=== PATIENT | male | born 1950 | race Caucasian/White ===

== ENCOUNTER → 2017-09-19 | Outpatient (CLI) | payer MEDICARE, BC | END | disposition home or self-care (01) | LOC: HKI 15:14 | DX: M17.12 Unilateral primary osteoarthritis, left knee (principal); Z96.651 Presence of right artificial knee joint | CPT/HCPCS: 73562; 73562-50 ==

== ENCOUNTER → 2017-11-17 | Outpatient (CLI) | payer MEDICARE, BC | END | disposition home or self-care (01) | LOC: HKI 09:24 | DX: Z01.818 Encounter for other preprocedural examination (principal) | CPT/HCPCS: G0463 ==

== ENCOUNTER 2017-11-27 09:08 | Observation (INO) | payer MEDICARE, BC ==
[2017-11-20 14:39] LABS: ADD MAN DIFF? NO
[2017-11-20 15:13] LABS: BASOPHILS % 0.4 % (0.0-2.0); EOSINOPHILS # 0.1 10^3/ul (0.0-0.5); EOSINOPHILS % 2.7 % (0.0-7.0); HEMATOCRIT 39.5 % (42.0-52.0); HEMOGLOBIN 13.5 g/dl (14.0-18.0); LYMPHOCYTES % 22.7 % (15.0-51.0); MEAN CORPUSCULAR HEMOGLOBIN 29.4 pg (29.0-33.0); MEAN CORPUSCULAR HGB CONC 34.2 g/dl (32.0-37.0); MEAN CORPUSCULAR VOLUME 86.1 fl (82.0-101.0); MEAN PLATELET VOLUME 9.6 fl (7.4-10.4); MONOCYTE # 0.4 10^3/ul (0.3-0.9); NEUTROPHILS % 65.8 % (39.0-77.0); PLATELET COUNT 200 10^3/UL (140-415); RED BLOOD COUNT 4.59 10^6/ul (4.70-6.10); RED CELL DISTRIBUTION WIDTH 13.2 % (11.5-14.5)
[2017-11-20 15:13] LABS: WHITE BLOOD COUNT 4.5 10^3/ul (4.8-10.8)
[2017-11-20 15:18] LABS: ALANINE AMINOTRANSFERASE 27 IU/L (13-69); ALBUMIN 3.9 g/dl (3.3-4.9); ALBUMIN/GLOBULIN RATIO 1.25; ALKALINE PHOSPHATASE 61 IU/L (42-121); ANION GAP 14 (8-16); ASPARTATE AMINO TRANSFERASE 26 IU/L (15-46); BILIRUBIN,INDIRECT 0.3 mg/dl (0-1.1); BILIRUBIN,TOTAL 0.3 mg/dl (0.2-1.3); BLOOD UREA NITROGEN 18 mg/dl (7-20); CALCIUM 9.5 mg/dl (8.4-10.2); CARBON DIOXIDE 24 mmol/L (21-31); CHLORIDE 109 mmol/L (97-110); CREATININE 0.91 mg/dl (0.61-1.24); GLUCOSE 107 mg/dl (70-220); SODIUM 143 mmol/L (135-144)
[2017-11-20 15:19] LABS: INR 1.04; PROTIME 13.7 Sec (11.9-14.9); PT RATIO 1.1
[2017-11-20 15:20] LABS: PARTIAL THROMBOPLASTIN TIME 29.2 Sec (25.0-35.0)
[2017-11-20 15:21] LABS: ADD UMIC YES; UR ASCORBIC ACID NEGATIVE (NEGATIVE); UR BILIRUBIN (Dip) NEGATIVE (NEGATIVE); UR BLOOD (Dip) 2+ mg/dL (NEGATIVE); UR CLARITY CLEAR (CLEAR); UR COLOR YELLOW (YELLOW); UR GLUCOSE (Dip) NEGATIVE (NEGATIVE); UR KETONES (Dip) NEGATIVE (NEGATIVE); UR LEUKOCYTE ESTERASE (Dip) NEGATIVE Leu/ul (NEGATIVE); UR NITRITE (Dip) NEGATIVE (NEGATIVE); UR RBC 3 /HPF (0-5); UR SPECIFIC GRAVITY (Dip) 1.018 (1.003-1.030); UR TOTAL PROTEIN (Dip) NEGATIVE (NEGATIVE); UR UROBILINOGEN (Dip) NEGATIVE (NEGATIVE); UR WBC 0 /HPF (0-5)
[2017-11-20 16:35] LABS: ERYTHROCYTE SEDIMENTATION RATE 2 mm/Hr (0-20)
[~2017-11-27 09:08] MED LIST: CLINDAMYCIN 600 MG/D5W (PMX) 50 ML IVPB; CLINDAMYCIN 900 MG/50 ML D5W IVPB IVPB
[2017-11-27] MEDS ORDERED: DEXAMETHASONE 4 MG/ML 1 ML INJ (11:00)
[2017-11-27] MEDS ORDERED: PROPOFOL 20 ML (11:00)
[2017-11-27] MEDS ORDERED: CEFAZOLIN 1 GM INJ (11:00)
[2017-11-27] MEDS ORDERED: ROCURONIUM 50 MG INJ (11:00)
[2017-11-27] MEDS ORDERED: GLYCOPYRROLATE 0.4 MG INJ (11:00)
[2017-11-27] MEDS ORDERED: MIDAZOLAM 1 MG/ML 2 ML INJ (11:00)
[2017-11-27] MEDS ORDERED: FENTAnyl 50 MCG/ML VIAL (11:00)
[2017-11-27] MEDS ORDERED: NEOSTIGMINE 3 MG/3 ML SYRINGE (11:00)
[2017-11-27] MEDS ORDERED: ONDANSETRON 4 MG INJ (11:00)
[2017-11-27] MEDS ORDERED: BUPIVACAINE 0.75% (MPF) 10 ML INJ (11:12)
[2017-11-27] MEDS ORDERED: BUPIVACAINE 0.75%/DEXT (SPINAL) 2 ML INJ (11:12)
[2017-11-27] MEDS: LACTATED RINGER'S 1,000 ML IV (11:16)
[2017-11-27] MEDS: LANSOPRAZOLE 30 MG CAP PO (11:16)
[2017-11-27] MEDS: ACETAMINOPHEN 1000MG/100ML IV 100 ML IVPB (11:16)
[2017-11-27] MEDS: ONDANSETRON 4 MG INJ IV ×4 (11:17→19:00)
[2017-11-27] MEDS: DEXAMETHASONE 4 MG/ML 1 ML INJ IV (11:17)
[2017-11-27] MEDS ORDERED: NA PHOSPHATE/BIPHOS 133 ML ENEMA PR (13:00)
[2017-11-27] MEDS ORDERED: NALOXONE (0.4 MG/ML) INJ IV (13:00)
[2017-11-27] MEDS ORDERED: MAGNESIUM HYDROXIDE 30ML CUP PO (13:00)
[2017-11-27] MEDS ORDERED: BISACODYL 10 MG SUPP PR (13:00)
[2017-11-27] MEDS ORDERED: TRIMETHOBENZAMIDE 100 MG/ML VIAL IM ×2 (13:00→14:00)
[2017-11-27] MEDS ORDERED: KETOROLAC 15 MG INJ IV (13:00)
[2017-11-27] MEDS ORDERED: oxyCODONE 5 MG TAB PO ×2 (13:00)
[2017-11-27] MEDS ORDERED: SENNA/DOCUSATE NA (8.6MG/50MG) TAB PO (13:00)
[2017-11-27] MEDS: TRANEXAMIC ACID 1,000 MG in D5W 100 ML AT INCISION X1 IVPB (13:27)
[2017-11-27] MEDS ORDERED: SUGAMMADEX SODIUM 200 MG/2 ML VIAL IV (13:48)
[2017-11-27] MEDS ORDERED: LABETALOL HCL 20MG INJ IV (14:00)
[2017-11-27] MEDS ORDERED: ALBUTEROL 0.083% (NEB) 2.5 MG/3 ML AMP HHN (14:00)
[2017-11-27] MEDS ORDERED: DIPHENHYDRAMINE 50 MG INJ IV (14:00)
[2017-11-27] MEDS ORDERED: HYDROmorphONE (0.2 MG/ML) 10ML SYG IV ×3 (14:00)
[2017-11-27] MEDS ORDERED: MIDAZOLAM 1 MG/ML 2 ML INJ IV (14:00)
[2017-11-27] MEDS ORDERED: OXYCODONE/ACETAMINOPHEN (5/325) TAB PO ×2 (14:00)
[2017-11-27] MEDS ORDERED: EPHEDrine SULFATE 50 MG/5 ML SYG IV (14:00)
[2017-11-27] MEDS ORDERED: hydrALAzine 20 MG INJ IV (14:00)
[2017-11-27] MEDS ORDERED: IPRATROPIUM (NEB) 0.5 MG/2.5 ML AMP HHN (14:00)
[2017-11-27] MEDS ORDERED: MEPERIDINE 25 MG INJ IV (14:00)
[2017-11-27] MEDS ORDERED: FENTAnyl 50 MCG/ML VIAL IV ×3 (14:00)
[2017-11-27] MEDS: BACITRACIN 50000 UNITS INJ (14:02)
[2017-11-27] MEDS: POLYMYXIN B 500000 UNIT INJ (14:02)
[2017-11-27] MEDS: TRANEXAMIC ACID 1,000 MG in D5W 100 ML AT CLOSURE X1 IVPB (14:03)
[2017-11-27] MEDS: ASPIRIN (EC) 325 MG TAB PO (15:37)
[2017-11-27] MEDS: DOCUSATE SODIUM 100 MG CAP PO (15:38)
[2017-11-27] MEDS: SOD CHLORIDE 0.9% 1,000 ML IV (18:55)
[2017-11-27] MEDS: VANCOMYCIN 1 GM (PMX) 250 ML IVPB (18:55)
[2017-11-27] MEDS: LISINOPRIL 10 MG TAB PO (20:51)
[2017-11-27] MEDS: CELECOXIB 100 MG CAP PO (20:52)
[2017-11-27] MEDS: DIPHENHYDRAMINE 50 MG INJ IV (22:22)
[2017-11-28] MEDS: ONDANSETRON 4 MG INJ IV ×2 (00:30→06:36)
[2017-11-28] MEDS: SOD CHLORIDE 0.9% 1,000 ML IV (03:30)
[2017-11-28 05:44] LABS: ADD MAN DIFF? NO
[2017-11-28 05:53] LABS: BASOPHILS % 0.1 % (0.0-2.0); HEMATOCRIT 36.4 % (42.0-52.0); HEMOGLOBIN 12.3 g/dl (14.0-18.0); LYMPHOCYTES # 0.7 10^3/ul (0.8-2.9); LYMPHOCYTES % 8.1 % (15.0-51.0); MEAN CORPUSCULAR HEMOGLOBIN 29.6 pg (29.0-33.0); MEAN CORPUSCULAR HGB CONC 33.8 g/dl (32.0-37.0); MEAN CORPUSCULAR VOLUME 87.5 fl (82.0-101.0); MEAN PLATELET VOLUME 9.5 fl (7.4-10.4); MONOCYTE # 0.7 10^3/ul (0.3-0.9); MONOCYTES % 8.1 % (0.0-11.0); NEUTROPHIL # 6.8 10^3/ul (1.6-7.5); NEUTROPHILS % 83.3 % (39.0-77.0); PLATELET COUNT 195 10^3/UL (140-415); RED BLOOD COUNT 4.16 10^6/ul (4.70-6.10); RED CELL DISTRIBUTION WIDTH 13.1 % (11.5-14.5)
[2017-11-28 05:53] LABS: WHITE BLOOD COUNT 8.1 10^3/ul (4.8-10.8)
[2017-11-28 06:06] LABS: ANION GAP 14 (8-16); BLOOD UREA NITROGEN 17 mg/dl (7-20); CALCIUM 8.9 mg/dl (8.4-10.2); CARBON DIOXIDE 26 mmol/L (21-31); CHLORIDE 107 mmol/L (97-110); CREATININE 0.86 mg/dl (0.61-1.24); GLUCOSE 134 mg/dl (70-220); POTASSIUM 4.6 mmol/L (3.5-5.1); SODIUM 142 mmol/L (135-144)
[2017-11-28] MEDS: VANCOMYCIN 1 GM (PMX) 250 ML IVPB (06:26)
[2017-11-28] MEDS: BETHANECHOL 25 MG TAB PO (06:26)
[2017-11-28] MEDS: FERROUS FUMARATE (SR) TAB PO (08:20)
[2017-11-28] MEDS: GABAPENTIN 100 MG CAP PO (08:20)
[2017-11-28] MEDS: DOCUSATE SODIUM 100 MG CAP PO (08:20)
[2017-11-28] MEDS: LISINOPRIL 20 MG TAB PO (08:21)
[2017-11-28] MEDS: ASPIRIN (EC) 325 MG TAB PO (08:21)
[2017-11-28] MEDS: CELECOXIB 100 MG CAP PO (08:21)
[2017-11-28] MEDS: oxyCODONE 5 MG TAB PO ×2 (08:40→13:49)
[2017-11-29] MEDS ORDERED: PANTOPRAZOLE (EC) 40 MG TAB PO (06:00)
== END 2017-11-28 15:10 | disposition home health service (06) ==
LOC: REC 09:08 → MS1 16:57
DX: M17.12 Unilateral primary osteoarthritis, left knee (principal); I10 Essential (primary) hypertension; Z96.651 Presence of right artificial knee joint; G47.30 Sleep apnea, unspecified
CPT/HCPCS: 27447; 71046; 73560; 80048; 80053; 81001; 85025; 85610; 85651; 85730; 86850; 86900; 86901; 87081; 87086; 88304; 88311; 93005; 97162; 97165; 99217

== ENCOUNTER → 2017-12-15 | Outpatient (CLI) | payer MEDICARE, BC | END | disposition home or self-care (01) | LOC: HKI 10:16 | DX: Z47.1 Aftercare following joint replacement surgery (principal); Z96.652 Presence of left artificial knee joint | CPT/HCPCS: 73560; 73560-LT ==

== ENCOUNTER → 2018-01-12 | Outpatient (CLI) | payer MEDICARE, BC | END | disposition home or self-care (01) | LOC: HKI 10:07 | DX: Z47.1 Aftercare following joint replacement surgery (principal); Z96.652 Presence of left artificial knee joint | CPT/HCPCS: 73560; 73560-LT ==